=== PATIENT | female | born 1970 | race Caucasian/White ===

== ENCOUNTER 2016-08-07 07:57 | Outpatient (CLI) | payer BC ==
--- NOTE | 2016-08-07 09:44 | DIAGNOSTIC IMAGING REPORT ---
PROCEDURE: US COMPLETE PELVIC W/TRANSVAG INDICATION: Abnormal uterine bleeding, initial encounter TECHNIQUE: Transabdominal and endovaginal randall scale and color Doppler sonographic images of the female pelvis were obtained. COMPARISON: None. FINDINGS: TRANSABDOMINAL SCANS: Retroflexed uterus measures 8.6 x 5.4 x 4 cm. TRANSVAGINAL SCANS: Nabothian cysts are present. Myometrium is unremarkable. Endometrium measures 6 mm. Right ovary measures 2.8 x 1.9 x 1.5 cm with a 2.5 cm septated cyst versus cyst with a daughter cyst. Left ovary measures 2.5 x 1.8 x 0.8 cm. There is vascular flow to both ovaries. No free fluid in the cul-de-sac. IMPRESSION: 1. Endometrium measures 6 mm (Normal endometrial thickness in postmenopausal patient is 5 mm) 2. 2.5 cm right ovarian septated cyst
== END 2016-08-07 23:00 ==
LOC: US SRH 07:57
DX: N95.9 Unspecified menopausal and perimenopausal disorder (principal); N83.201 Unspecified ovarian cyst, right side

== ENCOUNTER 2016-09-21 10:01 | Outpatient (CLI) | payer BC ==
--- NOTE | 2016-09-21 11:35 | DIAGNOSTIC IMAGING REPORT ---
PROCEDURE: XR CERVICAL SPINE 2 OR 3 VIEW INDICATION: PAIN TECHNIQUE: Three views. COMPARISON: None. FINDINGS: Osseous structures and disc spaces are normal. No evidence of an acute process or fracture. IMPRESSION: 1. Negative cervical spine.
== END 2016-09-21 23:00 | disposition home or self-care (01) ==
LOC: XR SRH 10:01
DX: M54.2 Cervicalgia (principal)